=== PATIENT | female | born 1950 | race Caucasian/White ===

== ENCOUNTER 2016-06-30 21:03 | Inpatient (IN) | payer BC, OTHER ==
[~2016-06-30] VITALS: Ht 157.5 cm; Wt 75.1 kg
[2016-06-30 20:00] VITALS: BP 142/62
[2016-06-30 22:23] VITALS: BP 155/76
--- NOTE | 2016-06-30 23:12 | History & Physical Report ---
Admission Admit Date 06/30/16 Information Source Information Source: Self Reliability: Good History Chief Complaint SOB and flu like symptoms History of Present Illness 66 y/o female patient with PMH of hypertension, chronic pain syndrome, DJD, h/o chronic headaches presented to [facility] ER with the c/o SOB which started today associated with orthopnea. She also c/o flu like symptoms including tiredness, headcahes, subjetcive fever, associated nausea and vomitings. In [place] ER on initial eval she was found to have bilateral Pulmonary embolism was given 1st dose of lovenox there and transfered here for no availabilty of beds in [place]. As per patient she was in good health until 3 days back when she started to have flu like symptoms with tiredness, fatigue, headaches, subjective fever, associated nausea and vomitings. vomitings were non bloody and non bilious. Then today she started to have SOB with orthopnea and she went to [place] ED. She is admitted [facility]. Patient History 1. Hypertension 2. Chronic pain syndrome 3. Disc herniation 4. COPD (chronic obstructive pulmonary disease) 5. Alcoholic hepatitis 6. H/O acute alcoholic hepatitis 7. Hyponatremia 8. H/O: CVA (cerebrovascular accident) 9. Diverticulosis 10. H/O headache 11. H/O abdominal hysterectomy 12. History of appendectomy 13. S/P rotator cuff repair 14. H/O inguinal hernia repair 15. Hx of tonsillectomy 16. Hx of colectomy 17. 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 MOTHER (Mother of intestinal problem). Medications and Allergies Medications Current Medications Sig/Tg Start time Last Medication Dose Route Stop Time Status Admin Enoxaparin Sodium 75 MG BID 07/01 899 UNV SC Metoprolol Succinate 50 MG DAILY 07/01 899 AC PO Pregabalin 200 MG DAILY 07/01 899 AC PO Pantoprazole Sodium 40 MG DAILY@0600 07/01 0600 AC IV Furosemide 20 MG DAILY 06/30 2200 AC IV Acetaminophen 650 MG Q6H PRN 01/03 2145 AC PO Docusate Sodium 250 MG BID PRN 06/30 2144 AC PO Zolpidem Tartrate 5 MG QHS PRN 06/30 2144 AC PO Home Medication: Patient could not provide complete med list As per [place] ER records she is on following meds at home Bupropion SR 300mg po daily Metoprolol xl 50mhg po dialy Proair 90mcg prn Tramadol 50 mg po q 4hrly prn for pain Famotidine 20mg po daiy Lidocaine patch topical daily to right shoulder Miralax 17gm twice a day prn promethazine 25 mg rectal suppository Morning team to confirm [facility] Allergies Coded Allergies: Penicillins (06/30/16) Sulfa Antibiotics (06/30/16) Review of Systems Constitutional Denies: Fever, Chills, Sweats, Weakness, Malaise. Eyes Denies: Pain, Vision Change, Conjunctival Inflammation, Eyelid Inflammation, Redness. ENT Throat Pain. Denies: Nasal Discharge, Nasal Congestion, Mouth Pain, Mouth Swelling, Throat Swelling. Respiratory Cough, Dry, SOB w/exertion. Denies: Wheezing, Hemoptysis, Pleuritic Pain, Sputum, Other. Cardiovascular Chest Pain, Orthopnea, Edema. Denies: Palpitations, PND, Light-headedness. Gastrointestinal Nausea, Vomiting. Denies: Abdominal Pain, Diarrhea, Constipation, Melena, Hematochezia. Genitourinary Denies: Dysuria, Frequency, Incontinence, Hematuria, Retention. Musculoskeletal Shoulder Pain, Back Pain, Other (headache). Skin Denies: Rash, Lesions, Jaundice, Bruising. Neurological Denies: Weakness, Numbness, Incoordination, Change in speech, Confusion, Seizures. Physical Exam Vital Signs / I&Os Vital Signs Date Time Temp Pulse Resp B/P Pulse O2 O2 Flow FiO2 Ox Delivery Rate 06/30 2222 98.1 67 18 155/76 98 Nasal 2.0 Cannula 06/30 2219 2.0 06/30 1999 98.4 70 20 142/62 94 Nasal 2.0 Cannula General Appearance Alert, Oriented X3, No acute distress HEENT Atraumatic, PERRLA, Moist mucous membranes Lungs Clear to auscultation, Normal air movement Neck Supple, No JVD Cardiovascular Regular rate and rhythm, Normal S1 and S2 Abdomen Normal bowel sounds, Soft, No tenderness, No guarding Extremities Bilateral air entry equal Skin No Rashes, No Breakdown, No Significant Lesions Neurological No lateralizing signs LAB Results Laboratory Tests 06/30 2200 Chemistry Creatine Kinase (24 - 260 U/L) 94 Troponin (0.00 - 1.5 ng/mL) 0.07 Significant labs frrom [place]: WBC 9.56 H/H: 03/26 plts: 547 UA: NOT SIGNIFICANT Na: 132 K: 3.5 CL: 93 CO2: 24 Glucose: 110 Bun/cr: 9/0.6 BNP: 769(H) TROPONINS: 0.08 Imaging xr chest: Cardiac and pulmonary interstial prominence has incresed compared to prior exam. Small bilateral pleural effusions, in clinicla settings consider pulmonary oedema. No focal infiltrate. CT THORAX WITH AND WITHOUT CONTRAST: ACUTE SEGMENTAL RIGHT LOWER AND LEFT UPPER LOBE PULMONARY EMBOLI. SMALL BASILAR EFFUSIONS. MILD BASILAR INTERSTITIAL SEPTAL THICKENING. Assessment and Plan Problem List 1. Pulmonary embolism Plan Continue with lovenox start coumadin tomorrow check baseline INR in am c/w supplemental oxygen keep o2 sats >95% 2. Acute exacerbation of CHF (congestive heart failure) Plan Acute mild chf exacerbation with high BNP >700, x-ray with congestion and bilateral pleural effusion start on IV lasix 20 mg daily moniotr I/O's daily weight 3. Hypertension Plan will c/w metoprolol monitor BP hold SBP <110, HR <60 4. Nicotine dependence Plan conselled about smoking cessation 5. COPD (chronic obstructive pulmonary disease) Plan stable duo nebs prn for now 6. Hyponatremia Plan mild hyponatremia fluid restriction to 1000ml daily monitor BMP in am 7. Chronic pain syndrome Plan on tramadol E&M Codes Admission: Inpt-High/
--- NOTE | 2016-06-30 23:12 | History & Physical Report ---
Admission Admit Date 06/30/16 Information Source Information Source: Self Reliability: Good History Chief Complaint SOB and flu like symptoms History of Present Illness 66 y/o female patient with PMH of hypertension, chronic pain syndrome, DJD, h/o chronic headaches presented to [facility] ER with the c/o SOB which started today associated with orthopnea. She also c/o flu like symptoms including tiredness, headcahes, subjetcive fever, associated nausea and vomitings. In [place] ER on initial eval she was found to have bilateral Pulmonary embolism was given 1st dose of lovenox there and transfered here for no availabilty of beds in [place]. As per patient she was in good health until 3 days back when she started to have flu like symptoms with tiredness, fatigue, headaches, subjective fever, associated nausea and vomitings. vomitings were non bloody and non bilious. Then today she started to have SOB with orthopnea and she went to [place] ED. [facility] is [facility]. Patient History 1. Hypertension 2. Chronic pain syndrome 3. Disc herniation 4. COPD (chronic obstructive pulmonary disease) 5. Alcoholic hepatitis 6. H/O acute alcoholic hepatitis 7. Hyponatremia 8. H/O: CVA (cerebrovascular accident) 9. Diverticulosis 10. H/O headache 11. H/O abdominal hysterectomy 12. History of appendectomy 13. S/P rotator cuff repair 14. H/O inguinal hernia repair 15. Hx of tonsillectomy 16. Hx of colectomy 17. 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 MOTHER (Mother of intestinal problem). Medications and Allergies Medications Current Medications Sig/Tg Start time Last Medication Dose Route Stop Time Status Admin Enoxaparin Sodium 75 MG BID 07/01 899 UNV SC Metoprolol Succinate 50 MG DAILY 07/01 899 AC PO Pregabalin 200 MG DAILY 07/01 899 AC PO Pantoprazole Sodium 40 MG DAILY@0600 07/01 0600 AC IV Furosemide 20 MG DAILY 06/30 2200 AC IV Acetaminophen 650 MG Q6H PRN 01/03 2145 AC PO Docusate Sodium 250 MG BID PRN 06/30 2144 AC PO Zolpidem Tartrate 5 MG QHS PRN 06/30 2144 AC PO Home Medication: Patient could not provide complete med list As per [place] ER records she is on following meds at home Bupropion SR 300mg po daily Metoprolol xl 50mhg po dialy Proair 90mcg prn Tramadol 50 mg po q 4hrly prn for pain Famotidine 20mg po daiy Lidocaine patch topical daily to right shoulder Miralax 17gm twice a day prn promethazine 25 mg rectal suppository Morning team to confirm med list from [facility] Allergies Coded Allergies: Penicillins (06/30/16) Sulfa Antibiotics (06/30/16) Review of Systems Constitutional Denies: Fever, Chills, Sweats, Weakness, Malaise. Eyes Denies: Pain, Vision Change, Conjunctival Inflammation, Eyelid Inflammation, Redness. ENT Throat Pain. Denies: Nasal Discharge, Nasal Congestion, Mouth Pain, Mouth Swelling, Throat Swelling. Respiratory Cough, Dry, SOB w/exertion. Denies: Wheezing, Hemoptysis, Pleuritic Pain, Sputum, Other. Cardiovascular Chest Pain, Orthopnea, Edema. Denies: Palpitations, PND, Light-headedness. Gastrointestinal Nausea, Vomiting. Denies: Abdominal Pain, Diarrhea, Constipation, Melena, Hematochezia. Genitourinary Denies: Dysuria, Frequency, Incontinence, Hematuria, Retention. Musculoskeletal Shoulder Pain, Back Pain, Other (headache). Skin Denies: Rash, Lesions, Jaundice, Bruising. Neurological Denies: Weakness, Numbness, Incoordination, Change in speech, Confusion, Seizures. Physical Exam Vital Signs / I&Os Vital Signs Date Time Temp Pulse Resp B/P Pulse O2 O2 Flow FiO2 Ox Delivery Rate 06/30 2222 98.1 67 18 155/76 98 Nasal 2.0 Cannula 06/30 2219 2.0 06/30 1999 98.4 70 20 142/62 94 Nasal 2.0 Cannula General Appearance Alert, Oriented X3, No acute distress HEENT Atraumatic, PERRLA, Moist mucous membranes Lungs Clear to auscultation, Normal air movement Neck Supple, No JVD Cardiovascular Regular rate and rhythm, Normal S1 and S2 Abdomen Normal bowel sounds, Soft, No tenderness, No guarding Extremities Bilateral air entry equal Skin No Rashes, No Breakdown, No Significant Lesions Neurological No lateralizing signs LAB Results Laboratory Tests 06/30 2200 Chemistry Creatine Kinase (24 - 260 U/L) 94 Troponin (0.00 - 1.5 ng/mL) 0.07 Significant labs frrom [place]: WBC 9.56 H/H: 03/26 plts: 547 UA: NOT SIGNIFICANT Na: 132 K: 3.5 CL: 93 CO2: 24 Glucose: 110 Bun/cr: 9/0.6 BNP: 769(H) TROPONINS: 0.08 Imaging xr chest: Cardiac and pulmonary interstial prominence has incresed compared to prior exam. Small bilateral pleural effusions, in clinicla settings consider pulmonary oedema. No focal infiltrate. CT THORAX WITH AND WITHOUT CONTRAST: ACUTE SEGMENTAL RIGHT LOWER AND LEFT UPPER LOBE PULMONARY EMBOLI. SMALL BASILAR EFFUSIONS. MILD BASILAR INTERSTITIAL SEPTAL THICKENING. Assessment and Plan Problem List 1. Pulmonary embolism Plan Continue with lovenox start coumadin tomorrow check baseline INR in am c/w supplemental oxygen keep o2 sats >95% 2. Acute exacerbation of CHF (congestive heart failure) Plan Acute mild chf exacerbation with high BNP >700, x-ray with congestion and bilateral pleural effusion start on IV lasix 20 mg daily moniotr I/O's daily weight 3. Hypertension Plan will c/w metoprolol monitor BP hold SBP <110, HR <60 4. Nicotine dependence Plan conselled about smoking cessation 5. COPD (chronic obstructive pulmonary disease) Plan stable duo nebs prn for now 6. Hyponatremia Plan mild hyponatremia fluid restriction to 1000ml daily monitor BMP in am 7. Chronic pain syndrome Plan on tramadol E&M Codes Admission: Inpt-High/
[2016-07-01 02:16] VITALS: BP 148/82
[2016-07-01 06:35] VITALS: BP 163/84
--- NOTE | 2016-07-01 07:48 | Progress Note ---
Subjective General Note Date: July 01, 2016 Admission Date: June 30, 2016 Hospital Day: 2 PCP: Unknown Status: Inpatient Advanced Directive: FULL CODE Room: 203-A Brief History: The patient is a 66-year-old white female with a significant past medical history of SIADH and chronic hyponatremia, chronic headache, hypertension, diverticulosis, COPD, who presented as a transfer from [facility] ER ([place]) secondary to bilateral pulmonary emboli. Secondary to the above, the patient was admitted by Dr. Drake for further evaluation and treatment. For other history present illness, past medical history, family history, social history, review of systems, and admission physical examination please see the patient's history and physical examination and ER visit note in the patient's medical record. Subjective: The patient states she is doing well today. Complaints of left chest wall/head pain. These are chronic. Shortness of breath well-controlled. Patient requests: Improved headache control. Medications and Allergies Medications Current Medications Sig/Tg Start time Last Medication Dose Route Stop Time Status Admin Zolpidem Tartrate 5 MG QHS 07/01 2100 CAN PO Enoxaparin Sodium 80 MG BID 07/01 0900 AC SC Metoprolol Succinate 50 MG DAILY 07/01 0900 AC PO Pregabalin 200 MG DAILY 07/01 0900 AC PO Pantoprazole Sodium 40 MG DAILY@0600 07/01 0600 AC 07/01 IV 0525 Albuterol/Ipratropium 3 ML RTQ6H PRN 06/30 2315 07/01 IN 0721 Tramadol HCl 25 MG Q8H PRN 06/30 2315 AC 07/01 PO 0640 Furosemide 20 MG DAILY 06/30 2200 AC 06/30 IV 2249 Acetaminophen 650 MG Q6H PRN 06/30 2145 AC 06/30 PO 2249 Docusate Sodium 250 MG BID PRN 06/30 2145 AC PO Zolpidem Tartrate 5 MG QHS PRN 06/30 2145 AC 06/30 PO 2312 Allergies Coded Allergies: Penicillins (Severe, 07/01/16) Sulfa Antibiotics (Severe, 07/01/16) Physical Exam Vital Signs / I&Os Vital Signs Date Time Temp Pulse Resp B/P Pulse O2 O2 Flow FiO2 Ox Delivery Rate 07/01 0659 98 Nasal 3.0 Cannula 07/01 634 98.2 75 22 163/84 91 Nasal 2.0 Cannula 07/01 0216 2.0 07/01 021 98.2 74 18 148/82 96 Nasal 2.0 Cannula 06/30 2332 Nasal 2.0 Cannula 06/30 2222 98.1 67 18 155/76 98 Nasal 2.0 Cannula 06/30 2219 2.0 06/30 1999 98.4 70 20 142/62 94 Nasal 2.0 Cannula I&O 07/01 0000 06/30 1600 06/30 0800 Intake Total Output Total 350 Balance -350 General Appearance Alert, Oriented X3, Cooperative, No acute distress Lungs Clear to auscultation, Normal air movement Cardiovascular Regular rate and rhythm, Normal S1 and S2 Extremities No cyanosis, No clubbing Neurological Grossly normal Psych/Mental Status Mental status normal, depressed mood LAB Results Laboratory Tests 07/01 07/01 07/01 06/30 0610 0610 0610 2200 Chemistry Plasma Sodium (136 - 145 mmol/L) 144 Plasma Potassium (3.5 - 5.1 mmol/L) 3.4 Plasma Chloride (98 - 107 mmol/L) 106 CO2 (Enzymatic) (21 - 32 mmol/L) 31 BUN (7 - 18 mg/dL) 10 Creatinine (0.6 - 1.3 mg/dL) 0.6 Est GFR ( Amer) (mL/min) >60 Est GFR (Non-Af Amer) (mL/min) >60 Glucose (70 - 110 mg/dL) 94 Hemoglobin A1c % (4.5 - 6.2 %) 5.7 Plasma Calcium (8.5 - 10.1 mg/dL) 8.4 Plasma Magnesium (1.8 - 2.4 mg/dL) 1.8 Creatine Kinase (24 - 260 U/L) 73 94 Troponin (0.00 - 1.5 ng/mL) 0.06 0.07 Triglycerides (30 - 200 mg/dL) 103 Cholesterol (140 - 200 mg/dL) 184 LDL Cholesterol, Calc (mg/dL) 115 HDL Cholesterol (32 - 96 mg/dL) 49 LDL/HDL Ratio 2.3 Cholesterol/HDL Ratio 3.8 Coronary Risk Interp (0.4 - 1.0) 0.7 Hematology WBC (4.5 - 11.5 K/uL) 7.8 RBC (4.00 - 5.20 M/uL) 3.07 Hgb (12.0 - 16.0 gm/dL) 8.6 Hct (36.0 - 46.0 %) 27.6 MCV (80 - 100 fL) 90 MCH (26 - 34 pg) 28 RDW (11.6 - 14.8 %) 15.8 Neut % (Auto) (50 - 75 %) 66.3 Lymph % (Auto) (25 - 40 %) 20.3 [place] % (Auto) (3 - 14 %) 11.0 Eos % (Auto) (0 - 4 %) 1.9 Baso % (Auto) (0 - 2 %) 0.5 Plt Count, EDTA (150 - 400 K/uL) 466 PUBS MCHC (31 - 37 g/dL) 31 Assessment and Plan Problem List 1. Pulmonary embolism Plan -Patient presents with findings of common embolism -Begin xarelto 15 mg by mouth twice a day -DC Lovenox. 2. Hypertension Plan -Blood pressure mildly elevated this a.m. -BP 163/84 -Monitor with appropriate adjustments in antihypertensive therapy as indicated by BP measurements -Low-salt diet 3. Chronic pain syndrome Plan -Stable -Continue Ultram 50 mg by mouth every 6 hours when necessary for pain 4. Acute exacerbation of CHF (congestive heart failure) Plan -Echocardiogram shows mild LVH but no other significant abnormalities -Pulmonary exam unremarkable -No signs of CHF this time 5. Nicotine dependence Plan -Smoking cessation education -NicoDerm patch when necessary -Patient encouraged to follow a smoking abstinence program post discharge 6. COPD (chronic obstructive pulmonary disease) Plan -Stable -Encourage smoking abstinence program -Monitor 7. Hypokalemia Status Acute Onset Date Unknown Plan -Patient with mild hypokalemia -Potassium 3.4 this a.m. -Oral supplementation -Monitor 8. Hyponatremia Plan -Resolved. -Serum sodium this a.m. 144 -Monitor Current status: Fair, stable Anticipated discharge date: Anticipated discharge in a.m. Anticipated discharge placement: Home Patient care time: Time spent in chart review, patient interview, physical exam, CPOE, and care documentation: 25 minutes Visit to patient today: 2 Complexity of care: Moderate E&M Codes Rounding: Inpt-High/[id number]
[2016-07-01 10:38] VITALS: BP 165/92
[2016-07-01 14:29] VITALS: BP 119/62
--- NOTE | 2016-07-01 17:06 | DIAGNOSTIC IMAGING REPORT ---
REFERRING PHYSICIAN/PROVIDER: Rl Drake MD CONSULTING PROCESS EXPERT: Kvng Zhu MD PROCEDURE: M-mode 2D echocardiography with spectral and color flow Doppler TECHNICAL QUALITY: The study quality was technically adequate INDICATION: CHF RHYTHM DURING PROCEDURE: The patient was in normal sinus rhythm during the exam. INTERPRETATIONS: LEFT VENTRICLE: The left ventricle is normal in size. There is mild concentric left ventricular hypertrophy. There is no ventricular septal defect visualized. The ejection fraction is estimated to be 60-65%. Assessment of diastolic parameters indicates a normal left ventricular diastolic function and normal filling pressures. RIGHT VENTRICLE: The right ventricle grossly appears normal in size with probable normal systolic function. ATRIA: The left atrium is mildly dilated. The interatrial septum is intact with no evidence for an atrial septal defect. MITRAL VALVE: The mitral valve leaflets appear borderline thickened, but open well. There is mild mitral regurgitation. AORTIC VALVE: The aortic valve is trileaflet. Aortic valve opens well. No aortic regurgitation is present. TRICUSPID VALVE: The tricuspid valve is normal in structure and function. There is mild tricuspid regurgitation. The right ventricular systolic pressure is estimated at 28 mmHg assuming a right atrial pressure of 3 mmHg. PULMONIC VALVE: The pulmonic valve is not well visualized. There is trace or physiologic amount of pulmonic regurgitation. GREAT VESSELS: The aorta root is normal size. The dimensions of the ascending aorta are normal. The IVC is of normal diameter and collapses greater than 50% with the sniff. This suggests a low right atrial pressure of 3 mmHg. PERICARDIUM: There is no pericardial effusion. IMPRESSION: 1. There is mild concentric left ventricular hypertrophy with normal LV systolic function and normal LV diastolic function. 2. The right ventricle grossly appears normal in size with probable normal systolic function. 3. The left atrium is mildly dilated. 4. There is mild tricuspid regurgitation and mild mitral regurgitation. 5. The aorta root is normal size.
[2016-07-01 18:05] VITALS: BP 132/70
[2016-07-01 21:07] VITALS: BP 152/82
[2016-07-02] MEDS ORDERED: PHENERGAN EQUIV25 MG PO (00:07)
[2016-07-02] MEDS ORDERED: TRAMADOL HCL50 MG PO (00:08)
[2016-07-02] MEDS ORDERED: PROAIR HFA IN (00:08)
[2016-07-02] MEDS ORDERED: BUPROPION HCL300 MG PO (00:09)
[2016-07-02] MEDS ORDERED: LYRICA100 MG PO (00:10)
[2016-07-02] MEDS ORDERED: TOPROL XL50 MG PO (00:10)
[2016-07-02 03:30] VITALS: BP 129/68
[2016-07-02 07:02] VITALS: BP 149/93
--- NOTE | 2016-07-02 09:49 | Discharge Summary ---
Discharge Summary Report Admit Date 06/30/16 Discharge Date 07/02/16 Admission Diagnosis 1. Pulmonary embolism 2. Anemia 3. Hyponatremia-SIADH Discharge Diagnosis 1. Pulmonary embolism 2. Anemia-iron deficiency 3. Hyponatremia-SIADH Brief History The patient is a 66-year-old white female with a significant past medical history of SIADH and chronic hyponatremia, chronic headache, hypertension, diverticulosis, COPD, who presented as a transfer from [facility] ER ([place]) secondary to bilateral pulmonary emboli. Secondary to the above, the patient was admitted by Dr. Drake for further evaluation and treatment. For other history present illness, past medical history, family history, social history, review of systems, and admission physical examination please see the patient's history and physical examination and ER visit note in the patient's medical record. Hospital Course The following problems and their management were noted during the patient's hospitalization: 1. Pulmonary embolism The patient presented with history of bilateral pulmonary light. She was treated with subcutaneous Lovenox switch to xarelto 15 mg by mouth twice a day at the time of discharge. She will follow-up with her PCP next week for reevaluation and ongoing recommendations regarding anticoagulation. 2. Anemia-iron deficiency The patient had findings of iron deficiency anemia. She was discharged on ferrous sulfate 325 mg by mouth twice a day. She will follow-up with her PCP for ongoing evaluation and treatment of this problem next week. 3. Hyponatremia-SIADH The patient has a history of SIADH/hyponatremia. Her sodium was normal at 144 during her Hospital stay. She was encouraged to pursue her fluid restricted diet at 6254-0822 cc per day. Follow-up with her PCP for next week. Consider other agents for diagnosis of SIADH including demeclocycline, lithium, or Tolvaptan. These agents should be considered only if the patient's sodium cannot be consistently maintained over 130 with fluid restriction, salt intake, and loop diuretic. This was discussed with the patient during her hospital stay. General Appearance Alert, Oriented X3, Cooperative, No acute distress Lungs Clear to auscultation Cardiovascular Regular Rate, Normal S1, Normal S2 Neurological Grossly normal Psych/Mental Status Mental status NL, Mood NL Lab/Imaging Laboratory Tests 07/02 07/01 0618 1415 Chemistry Plasma Potassium (3.5 - 5.1 mmol/L) 3.7 Creatine Kinase (24 - 260 U/L) 71 Troponin (0.00 - 1.5 ng/mL) <0.05 Hematology WBC (4.5 - 11.5 K/uL) 6.8 RBC (4.00 - 5.20 M/uL) 3.55 Hgb (12.0 - 16.0 gm/dL) 10.1 Hct (36.0 - 46.0 %) 31.8 MCV (80 - 100 fL) 90 MCH (26 - 34 pg) 28 RDW (11.6 - 14.8 %) 15.9 Neut % (Auto) (50 - 75 %) 55.2 Lymph % (Auto) (25 - 40 %) 27.4 [place] % (Auto) (3 - 14 %) 14.5 Eos % (Auto) (0 - 4 %) 2.2 Baso % (Auto) (0 - 2 %) 0.7 Plt Count, EDTA (150 - 400 K/uL) 520 PUBS MCHC (31 - 37 g/dL) 32 Discharge Instructions/Meds For other recommendations regarding discharge diet, activity, followup, and discharge medications please see the patient's discharge instructions. Discharge condition: Fair, improved Greater than 30 min. was spent in the patient's discharge preparation including discharge interview and physical examination, progress note, discharge instructions, and discharge summary The patient was interviewed and examined on the day of discharge. E&M Codes Discharge: Inpt >30 min spent/[id number]
[2016-07-02] MEDS ORDERED: XARELTO10 MG PO (09:58)
[2016-07-02] MEDS ORDERED: ZOLPIDEM TARTRAT5 MG PO (09:58)
[2016-07-02] MEDS ORDERED: FERROUS SULFAT324 M1 PO (09:58)
--- NOTE | 2016-07-02 10:00 | Provider's Discharge Care Plan ---
Problem, Goal, Plan Problem List 1. Nicotine dependence Goals: Improve disease control, Prevent disease progress Instructions: Follow up as directed, Take meds as directed, Stop smoking 2. Pulmonary embolism Goals: Improve disease control, Improve function, Prevent disease progress Instructions: Follow up as directed, Take meds as directed 3. Iron deficiency anemia Goals: Improve disease control, Improve nutrition status, Prevent disease progress Instructions: Follow up as directed, Take meds as directed, Stop smoking
[2016-07-02] MEDS ORDERED: XARELTO15 MG PO (12:19)
[2016-07-02] MEDS ORDERED: FERROUS SULFAT325 M1 PO (12:19)
== END 2016-07-02 13:08 | disposition home or self-care (01) | DRG 176 ==
LOC: ACUTE2 SRH 21:03
PROVIDERS: ADMIT Internal Medicine
DX: I26.99 Other pulmonary embolism without acute cor pulmonale (principal); E22.2 Syndrome of inappropriate secretion of antidiuretic hormone; I11.0 Hypertensive heart disease with heart failure; E87.6 Hypokalemia; I50.9 Heart failure, unspecified; D50.9 Iron deficiency anemia, unspecified; J44.9 Chronic obstructive pulmonary disease, unspecified; F17.210 Nicotine dependence, cigarettes, uncomplicated; Z71.6 Tobacco abuse counseling
CPT/HCPCS: 90047; 90074; 90616; 91286; 91320; 91504; 91505; 92610; 92668; 92670; 92690; 92720; 92750; 93140; 95059